=== PATIENT | male | born 1985 | race Two or more races ===

== ENCOUNTER 2020-08-14 15:00 | Emergency (ER) | payer OTHER ==
[~2020-08-14] VITALS: Ht 180.3 cm; Wt 99.8 kg
[2020-08-14 19:35] LABS: Basophils # (auto) 0 10 ^3/uL (0-0.2); Basophils % (auto) 0.7 % (0.0-2.0); Eosinophils # (auto) 0 10 ^3/uL (0-0.8); Eosinophils % (auto) 0.2 % (0.0-7.0); Hematocrit 43.3 % (41.0-53.0); Hemoglobin 14.7 g/dL (13.5-17.5); Lymphocytes # (auto) 1.2 10 ^3/uL (0.4-5.4); Lymphocytes % (auto) 23.7 % (10.0-50.0); Mean Corpuscular Hemoglobin 28.7 pg (28.0-32.0); Mean Corpuscular Hgb Conc. 33.9 g/dL (32.0-36.0); Mean Corpuscular Volume 84.9 fL (80.0-100.0); Monocytes # (auto) 0.2 10 ^3/uL (0-1.3); Monocytes % (auto) 4.5 % (0.0-12.0); Neutrophils # (auto) 3.6 10 ^3/uL (1.6-8.6); Neutrophils % (auto) 70.9 % (37.0-80.0); Nucleated Red Blood Cells % 0.1 %; Platelet Count (auto) 188 10^3/uL (140-450); Red Cell Distribution Width 14.4 % (11.8-14.3); White Blood Cell 5.1 10^3/uL (4.4-10.8)
[2020-08-14 19:47] LABS: Albumin 3.6 g/dL (3.4-5.0); Anion Gap 6 (5-15); Blood Urea Nitrogen 15 mg/dL (7-18); Calcium 8.6 mg/dL (8.5-10.1); Carbon Dioxide 26 mmol/L (21-32); Chloride 105 mmol/L (98-107); Glucose 107 mg/dL (74-106); Potassium 4.1 mmol/L (3.5-5.1); Sodium 137 mmol/L (136-145)
[2020-08-14 19:50] LABS: INR 1.09 (0.9-1.15)
[2020-08-14 19:53] LABS: Alanine Aminotransferase 23 U/L (16-61); Alkaline Phosphatase 65 U/L (45-117); Aspartate Aminotransferase 19 U/L (15-37); BUN/Creatinine Ratio 10.6; Bilirubin, Total 0.4 mg/dL (0.2-1.0); GFR African American 74 mL/min; GFR Non-African American 61 mL/min; Lactate Dehydrogenase 339 U/L (87-241); Total Protein 8.6 g/dL (6.4-8.2)
[2020-08-14 23:52] VITALS: BP 141/80
== END 2020-08-14 23:56 | disposition home or self-care (01) ==
LOC: ER 15:00
DX: J12.9 Viral pneumonia, unspecified (principal); R07.89 Other chest pain; Z20.822 Contact with and (suspected) exposure to COVID-19
CPT/HCPCS: 36415; 71046; 71250; 80053; 82728; 83605; 83615; 84484; 85025; 85610; 87426

== ENCOUNTER 2021-05-03 07:28 | Emergency (ER) | payer MEDICAID, OTHER ==
[~2021-05-03] VITALS: Ht 180.3 cm; Wt 122.5 kg
[2021-05-03 07:56] VITALS: BP 122/77
[2021-05-03] MEDS ORDERED: PRED20TA2 PO (08:54)
[2021-05-03] MEDS ORDERED: ARTISOL13 LEFTEYE (08:54)
[2021-05-03] MEDS ORDERED: ACYC-161 PO (08:54)
== END 2021-05-03 11:11 | disposition home or self-care (01) ==
LOC: ER 07:28
DX: G51.0 Bell's palsy (principal); Z20.822 Contact with and (suspected) exposure to COVID-19
CPT/HCPCS: 36415; 70450; 87426